=== PATIENT | female | born 1950 | race American Indian/Alaskan Native ===

== ENCOUNTER 2016-12-15 14:35 | Outpatient (CLI) | payer MEDICARE ==
--- NOTE | 2016-12-16 08:36 | Mammography Report ---
BILATERAL MAMMOGRAM with CAD: HISTORY: Cancer screening FINDINGS: The breast tissue is heterogeneously dense, which could obscure detection of small masses (approximately 50%-75% glandular). No mass, distortion, suspicious calcification, or skin change is seen. IMPRESSION: Negative mammogram. There is no mammographic evidence of malignancy. RECOMMENDATION: Follow-up per ACS guidelines. BI-RADS CATEGORY: 1 = Negative ACR BI-RADS MAMMOGRAPHIC CODES: 0 = Needs additional imaging evaluation; 1 = Negative; 2 = Benign; 3 = Probably benign; 4 = Suspicious; 5 = Malignant; 6 = Known biopsy-proven malignancy COMMENT: 1. Dense breast tissue, i.e., adenosis, fibrocystic changes, etc., may obscure an underlying neoplasm. 2. Approximately 10% of cancers are not detected with mammography. 3. A negative mammography report should not delay biopsy if a clinically suspicious mass is present. COMMENT: Patient follow-up letters are generated in [employer].
--- NOTE | 2016-12-16 08:39 | Mammography Report ---
BONE DENSITY STUDY: DEFINITIONS: BMD = Bone Mineral Density T-score = BMD related to mean peak bone mass of young adult (mean expressed in Standard Deviation) Z-score = Age matched BMD expressed in SD World Health Organization (WHO) Diagnostic Criteria Normal T-score > -1 SD Osteopenia T-score between -1 and -2.4 SD Osteoporosis T-score -2.5 SD or below FINDINGS: The weighted average BMD of lumbar spine L1-L4 is 1.041 with a T-score of -1.0. The weighted average BMD of hip is 1.019 with a T-score of -0.1. IMPRESSION: The patient's T-score is diagnostic for osteopenia and average relative risk for fracture. NOTE: BMD is not the only risk factor for fracture; also consider factors such as the patient's age, risk of falling, previous osteoporotic fracture, family history of osteoporotic fractures, current smoker, and low body weight. Sage's triangle is a region of interest in femur, predominantly of trabecular bone. It is not a true anatomic site, and [facility] does not recommend its use clinically.
== END 2016-12-15 14:36 | disposition home or self-care (01) ==
LOC: SPVWC 14:35
PROVIDERS: ATTEND Family Medicine
DX: Z12.31 Encounter for screening mammogram for malignant neoplasm of breast (principal); M81.0 Age-related osteoporosis without current pathological fracture; M85.88 Other specified disorders of bone density and structure, other site
CPT/HCPCS: 77080; G0202; 77067

== ENCOUNTER 2017-10-29 06:41 | Day surgery (SDC) | payer MEDICARE ==
[2017-10-29] MEDS ORDERED: ECOTRIN PO NR (07:23)
[2017-10-29 07:55] LABS: Basophils % (Auto) 0.8 % (0.0-1.8); Eosinophils # (Auto) 0.1 K/mm3 (0.0-0.4); Eosinophils % (Auto) 1.3 % (0.0-4.3); Hematocrit 39.3 % (30.3-42.9); Hemoglobin 13.3 gm/dl (10.1-14.3); Lymphocytes # (Auto) 1.3 K/mm3 (1.2-5.4); Lymphocytes % (Auto) 25.3 % (13.4-35.0); Mean Corpuscular HGB Conc 34 % (30-34); Mean Corpuscular Hemoglobin 31 pg (28-32); Mean Corpuscular Volume 92 fl (79-97); Monocytes # (Auto) 0.4 K/mm3 (0.0-0.8); Platelet Count 219 K/mm3 (140-440); Red Blood Count 4.28 M/mm3 (3.65-5.03); Red Cell Distribution Width 12.1 % (13.2-15.2)
[2017-10-29] MEDS ORDERED: NACL 0.9% 500 ML 500 ML IV SCH (08:00)
[2017-10-29 08:05] LABS: INR 0.94 (0.87-1.13)
[2017-10-29 08:10] LABS: BUN/Creatinine Ratio 10; Blood Urea Nitrogen 9 mg/dL (7-17); Calcium 9.3 mg/dL (8.4-10.2); Hemolysis Index 50
[2017-10-29] MEDS ORDERED: HEPARIN 10,000 UNITS/10 ML ONE (08:45)
[2017-10-29] MEDS ORDERED: HEPARIN/NS 5000 UNIT/500ML(CATH LAB) 1,000 ML IR ONE (08:45)
[2017-10-29] MEDS ORDERED: NITROGLYCERIN SYRINGE 0 ML ONE (08:46)
[2017-10-29] MEDS: XYLOCAINE 2% INFILTRATI ONE ×2 (09:27→09:34)
[2017-10-29] MEDS: SUBLIMAZE ONE ×2 (09:27→09:33)
[2017-10-29] MEDS: VERSED ONE ×2 (09:27→09:33)
--- NOTE | 2017-10-29 11:32 | Cardiac Catherization Report ---
REFERRING PHYSICIAN: Goldy Hand MD INDICATION FOR PROCEDURE: The patient is a pleasant 67-year-old -[place] female, who was found to have severe mitral stenosis on echocardiogram and is referred for cardiac catheterization, right and left heart catheterization in anticipation of valve surgery. Risks, benefits, alternatives discussed at length prior to obtain informed consent. 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 An 8 mL of 2% lidocaine used to anesthetize the right groin. A standard 5-German sheath used to cannulate the right common femoral artery via modified Seldinger technique. A standard 8-German sheath to cannulate the right common femoral vein via modified Seldinger technique. First, we performed left heart cath. JL4 catheter used to engage left main. No dampening or ventricularization. Cineangiography performed in all projections. JR4 catheter was used to cross the valve under fluoroscopic guidance. Left ventriculography performed thorough 30 FAROESE projections via hand injections, catheter flushed. Manual pullback performed with continuous pressure monitoring. Catheter used the right coronary. No dampening or ventricularization. Cineangiography performed in all projections. Next, catheter placed in the left ventricle. Next, balloon tipped swan advanced carefully under fluoroscopic guidance into the pulmonary capillary wedge pressure position. Simultaneous wedge and left ventricular end diastolic pressures were measured. Wedge sat is obtained. Next, the balloon was deflated. PA pressure and obtained. Next, the catheter was withdrawn into the right ventricle and right atrium where pressures and saturations were also obtained. IVC sats also obtained. FA sat is obtained. Catheter was removed from the body. Sheath removed. Manual pressure used to achieve hemostasis. No complications. DATA: Aortic pressure is 140/70, LV pressure is 140. LVEP of 15 mmHg. LVP of 17 mmHg. Left ventriculography reveals normal systolic performance with estimated ejection fraction of 55-60%. No evidence of aortic stenosis. RA mean is 13, RV is 69. RVEDP of 16, PA is 70/30. Cardiac index is 2.63. Cardiac output is 4.3, pulmonary artery wedge pressure is 31-35, mean gradient across the valve is 20-21 mmHg. Mitral valve area measures 0.7-0.8 cm2. CORONARY ANATOMY: This is a right dominant system. Right coronary is a moderate sized vessel, courses AV groove, distally bifurcates in the posterior descending and posterolateral branch. No discrete stenosis noted. Left main is without significant disease. Bifurcates in left anterior descending and left circumflex. LAD is a moderate sized vessel, courses anterior intergroove, wraps around the apex, no significant disease. Left circumflex, moderate size vessel, courses AV groove. No significant disease. CONCLUSIONS: 1. No angiographic evidence of significant epicardial coronary disease in this right dominant system. 2. Normal left ventricular systolic performance, estimated ejection fraction of 55-60%. 3. No evidence of aortic stenosis. 4. Normal LVEDP. 5. Severe mitral stenosis with a mitral valve area of 0.7-0.8 cm2 and a mean gradient of 20-21 mmHg. 6. Cardiac index of 2.6, cardiac output 4.3. Saturation run also performed, does not show any evidence of intracardiac communication/shunting. 7. Pulmonary hypertension with a mean PA pressure approximately 50-60 mmHg. At this point, these findings are consistent with severe/critical mitral stenosis with at least moderate mitral regurgitation. I believe she meets criteria for valve replacement. Discussed with Dr. Keene. The patient will give her a copy of her films. She is not entirely symptomatic at this point. We will set up to see Dr. Keene as an outpatient for consideration of mitral valve replacement surgery. Results of the procedure explained to the patient and family. All questions and concerns were addressed. Standard groin care. JOB# [id number] SBM/NTS
[2017-10-29 13:19] VITALS: BP 114/73
--- NOTE | 2017-10-30 16:02 | Short Stay Summary ---
Short Stay Documentation Date of service: 10/29/17 - History H&P: obtained from office - Allergies and Medications Current Medications: Allergies No Known Allergies Allergy (Verified 10/29/17 07:21) Home Medications Medication Instructions Recorded Confirmed Last Taken Type [place] 450 mg PO BID 10/29/17 10/29/17 10/26/17 History Plover Extract [Plover] 150 mg PO TID 10/29/17 10/29/17 10/26/17 History Ubidecarenone [Coq-10] 100 mg PO BID 10/29/17 10/29/17 10/26/17 History - Brief post op/procedure progress note Date of procedure: 10/29/17 Pre-op diagnosis: severe MS Post-op diagnosis: same Procedure: C - see cath report Anesthesia: local Estimated blood loss: none Condition: stable - Disposition Condition at discharge: Stable Disposition: [id number]-01 TO HOME OR SELFCARE - Discharge Diagnoses (1) Mitral stenosis Status: Chronic Short Stay Discharge Plan Activity: advance as tolerated Diet: regular Wound: open to air, keep clean and dry, per your surgeon's advice Follow up with: IVONNE WILLSON MD [Primary Care Provider] - 7 Days Forms: CardCath PCI D/C Instructions
== END 2017-10-29 13:30 | disposition home or self-care (01) ==
LOC: CATHLABREC 06:41
PROVIDERS: ATTEND Internal Medicine
DX: I34.2 Nonrheumatic mitral (valve) stenosis (principal); I27.20 Pulmonary hypertension, unspecified; Z79.01 Long term (current) use of anticoagulants
CPT/HCPCS: 36415; 80048; 85025; 85610; 85730; 93005; 93010; 93460; 99156; 99157; C1769; J1644; J2250; J3010; J7040; Q9967

== ENCOUNTER 2019-01-27 11:19 | Day surgery (SDC) | payer MEDICARE ==
[~2019-01-27 11:19] MED LIST: IOPIDINE ONE; MYDRIACYL ONE; NEOFRIN ONE
[2019-01-27] MEDS ORDERED: NEOFRIN OS ONE (12:00)
[2019-01-27] MEDS ORDERED: IOPIDINE OS ONE (12:00)
[2019-01-27] MEDS ORDERED: MYDRIACYL OS ONE (12:01)
[2019-01-27 14:03] VITALS: BP 126/69
== END 2019-01-27 11:20 | disposition home or self-care (01) ==
LOC: OR 11:19
PROVIDERS: ATTEND Specialist
DX: H26.491 Other secondary cataract, right eye (principal); I10 Essential (primary) hypertension; K21.9 Gastro-esophageal reflux disease without esophagitis; M19.90 Unspecified osteoarthritis, unspecified site; E78.00 Pure hypercholesterolemia, unspecified; Z79.01 Long term (current) use of anticoagulants; Z79.899 Other long term (current) drug therapy; Z88.0 Allergy status to penicillin; Z98.41 Cataract extraction status, right eye; Z98.42 Cataract extraction status, left eye; Z82.49 Family history of ischemic heart disease and other diseases of the circulatory system

== ENCOUNTER 2019-02-03 11:18 | Day surgery (SDC) | payer MEDICARE ==
[2019-02-03] MEDS ORDERED: IOPIDINE OD ONE (11:34)
[2019-02-03] MEDS ORDERED: MYDRIACYL OD ONE (11:34)
[2019-02-03] MEDS ORDERED: NEOFRIN OD ONE (11:35)
[2019-02-03 12:00] VITALS: BP 113/58
== END 2019-02-03 12:54 | disposition home or self-care (01) ==
LOC: OR 11:18
PROVIDERS: ATTEND Specialist
DX: H26.491 Other secondary cataract, right eye (principal); I10 Essential (primary) hypertension; K21.9 Gastro-esophageal reflux disease without esophagitis; M19.90 Unspecified osteoarthritis, unspecified site; Z79.899 Other long term (current) drug therapy; Z79.01 Long term (current) use of anticoagulants; Z88.0 Allergy status to penicillin; Z98.41 Cataract extraction status, right eye; Z98.42 Cataract extraction status, left eye; Z98.890 Other specified postprocedural states; Z95.2 Presence of prosthetic heart valve; Z82.49 Family history of ischemic heart disease and other diseases of the circulatory system